=== PATIENT | male | born 1970 | race Caucasian/White ===

== ENCOUNTER 2022-11-20 00:40 | Emergency (ER) | payer OTHER, SELFPAY ==
[2022-11-20 00:47] VITALS: BP 139/85; PULSE 88; RESP 16; TEMP 36.5; O2SAT 96; BMI 38.4
--- NOTE | 2022-11-20 01:33 | CRLHL7_ITS ---
For Patients: As a result of the Century Cures Act, medical imaging exams and procedure reports are released immediately into your electronic medical record. You may view this report before your referring provider. If you have questions, please contact your health care provider. INDICATION: Occipital headache. Head and neck pain. COMPARISON: None available. TECHNIQUE: CT examination of the head was performed with 3 mm thick axial and 2 mm thick coronal and sagittal sections without intravenous contrast. Images were obtained from the vertex of the skull through the skull base, and I examined the images with the brain and bone windows. Please note that all CT scans at this facility use dose modulation, iterative reconstruction, and/or weight-based dosing when appropriate to reduce radiation dose to as low as reasonably achievable. FINDINGS: : The brain is normal in appearance for the patient`s age on today`s study, with no sign of mass lesion, mass effect, hemorrhage, or edema. The ventricles and sulci are normal in appearance for the patient`s age. The visualized portions of the orbits are normal in appearance. The visualized portions of the paranasal sinuses and mastoids are clear. The osseous structures are normal in their appearance with no sign of abnormality in the skull base or calvarium. IMPRESSION: Nothing seen to correlate with history of headache. Normal noncontrast CT of the head for the patient`s age. Please note that all CT scans at this facility use dose modulation, iterative reconstruction, and/or weight-based dosing when appropriate to reduce radiation dose to as low as reasonably achievable. Dictated by Clemente Cuevas MD @ 11/20/2022 3:46:06 AM (Electronically Signed)
--- NOTE | 2022-11-20 01:34 | ED.GENADULT ---
HPI - General Adult General Chief complaint: Headache/Migraine Stated complaint: Dizzy, headaches Time Seen by Provider: 11/20/22 01:15 Source: patient and family History of Present Illness HPI narrative: 52-year-old male with ongoing history of worsening insomnia. Known history of obstructive sleep apnea but has had some difficulty obtaining his CPAP device. For the last couple nights, he has been unable to fall asleep entirely and as a result is feeling more tired, weak, anxious and is feeling dizzy with occipital area headache. Headache is achy in nature, it is not worse with movement or exertion. It is not accompanied by any neurological change, seizure, loss of consciousness. There was no head trauma. The dizziness is more a lightheadedness feeling, not a room spinning feeling and is not accompanied by any vision change. He reports some vague chest discomfort, at rest, more so when he is trying to fall asleep and is also not exertional. He does not have any history of coronary artery disease or stress testing. He does carry a diagnosis of prior hypertension and has been on medications in the past but had lost a significant amount of weight purposefully to get off of the blood pressure medicines and has been told he can continue to do so. He reports that he saw his primary care provider last week, a new physician to him. Lots of blood work was done at another health system and I do not have access to those full records. No scans of any kind. It sounds as though the provider was working him up mainly for shoulder pain and they have plans to continue chipping away at the ongoing insomnia and other health concerns. Patient has not tried any specific medications to help with his sleep, dizziness, chest symptoms or fatigue. He has tried eliminating caffeine with no significant improvement, light daily exercise also with no improvement. No fever, no vomiting, no other systemic symptoms of illness. He is eating and drinking normally. No unexplained weight loss. No neurological changes. On specific questioning, he states that he does not typically have the dizziness and anxiety symptoms when he 1st goes to sleep but rather wakes with them. This is increasing in frequency over the last few nights. The headache is worse upon awakening in the middle of the night with the other symptoms but is somewhat present throughout the day as well. He reports that he uses cannabis gummies about once weekly, alcohol 1-2 drinks once weekly. No smoking, no other unusual recreational habits. Past medical history notable for history of hypertension and hyperlipidemia, no longer on medications for the hypertension. No allergies. No pertinent travel. ROS is notable for the generalized, neurological, musculoskeletal and cardiac symptoms as above, otherwise denies times 12 systems. Related Data Home Medications Medication Instructions Recorded Confirmed fluticasone propionate 50 1 spray intranasal DAILY PRN 11/20/22 11/20/22 mcg/actuation nasal spray,suspension (24 Hour Allergy Relief) Previous Rx's Medication Instructions Recorded albuterol sulfate 90 mcg/actuation 2 puff inhalation Q4-6H PRN 06/13/22 aerosol inhaler shortness of breath or wheezing #8.5 grams Allergies Allergy/AdvReac Type Severity Reaction Status Date / Time No Known Drug Allergies Allergy Verified 06/13/22 15:44 PFSH [facility] Medical History Wheeze ?R06.2 - Wheezing (ICD-10) COVID ?U07.1 - COVID-19 (ICD-10) Social History Smoking Status: Never smoker How often do you have a drink containing alcohol: never AUDIT-C Alcohol total score: 0 Non-prescribed substance use: denies use Exam Const: Vital Signs, click to edit/add: Vital Signs - 24 hr 11/20/22 00:47 11/20/22 03:22 Temperature 97.7 F Pulse Rate [Pulse Oximeter] 88 71 Respiratory Rate 16 16 Blood Pressure [Le ft Upper Arm] 139/85 135/90 H Pulse Oximetry 96 98 Oxygen Delivery Me thod Room Air Room Air Documenting provider has reviewed patient's vital signs: yes Common normals: alert General appearance: cooperative, comfortable and well kempt Orientation/consciousness: Yes awake HENMT: Common normals: normocephalic Head and scalp: normocephalic Face and sinus: normal facial exam Mouth: oral and palatal mucosa normal Throat: posterior oropharynx normal Eye: Common normals: PERRL, EOMs intact bilaterally and conjunctivae normal General eye: normal appearance of both eyes Conjunctiva: conjunctiva(e) normal Pupil: PERRL Neck & C-Spine: Common normals: full ROM, no lymphadenopathy, supple and no meningeal signs Resp: Common normals: normal respiratory effort, no retractions, no use of accessory muscles and clear to auscultation bilaterally Effort & inspection: able to speak in complete sentences Auscultation: clear to auscultation bilaterally Cardio: Common normals: regular rate, regular rhythm, S1 normal heart sound, S2 normal heart sound and no murmurs Rate: regular rate Rhythm: regular rhythm Heart sounds: S1 normal and S2 normal GI: Common normals: Normal to inspection, nondistended, normoactive bowel sounds present Extremity: Common normals: normal to inspection, normal capillary refill and no pedal edema Neuro: Sensorium/orientation: awake and alert Meningeal signs: no meningeal signs Cranial nerves: CN normal except as noted Speech: speech normal Gait (neuro): normal gait Motor exam: strength 5/5 throughout, no pronator drift, no tremor noted, muscle tone normal throughout and no movement abnormalities noted Psych: Appearance: well kempt Attitude: engaged Activity/motor behavior: appropriate eye contact Mood and affect: anxious Insight: fair Judgement: judgment good Skin: Common normals: no rashes or lesions noted General skin exam: no rashes or lesions noted Course Course Hospital Course: Differential diagnosis including intracranial pathology, tension headache, meningitis, infection, cardiac disease, among others. Recommend EKG, head CT, basic labs, cardiac monitoring. Will do trial of meclizine 25 mg, though I do not think this is vertiginous. p.o. x1. Reevaluation(s) Time of Reevaluation #1: 04:36 Reevaluation #1: Discussed EKG and CT findings with patient. Unfortunately, there was an error with his labs and they are unable to be run. They will need to be redrawn. This was discussed with him and he declines further wait after our full discussion of the other studies and his recent outpatient labs from the other Health System. The meclizine was not helpful. At this time, would like to go home. We had an extensive discussion on the tension headaches and symptoms that are waking him from sleep. This could be related to anxiety or fight or flight response from the sleep apnea. Was agreeable to a trial of some Flexeril for the tension headache and gentle sleep aid benefits. He has used this in the past with good results for other ailments. According to his sleep study, he does not have any severe apnea that would be life-threatening and it is okay to wait for his upcoming appointment in a few weeks. All questions were answered. Alarm symptoms that would warrant ED presentation reviewed. He verbalizes understanding and agreement. I did apologize for the miscommunication between nursing and lab regarding his blood work. He was very understanding of this. Vital Signs Vital signs: Initial Vital Signs Temperature 97.7 F 11/20/22 00:47 Temperature Source Temporal Artery Scan 11/20/22 00:47 Pulse Rate 88 11/20/22 00:47 Respiratory Rate 16 11/20/22 00:47 Blood Pressure 139/85 11/20/22 00:47 Blood Pressure Mean 103 11/20/22 00:47 Blood Pressure Position Sitting 11/20/22 00:47 Pulse Oximetry 96 11/20/22 00:47 Oxygen Delivery Method Room Air 11/20/22 00:47 Vital Signs Temperature 97.7 F 11/20/22 00:47 Pulse Rate 88 11/20/22 00:47 Respiratory Rate 16 11/20/22 00:47 Blood Pressure 139/85 11/20/22 00:47 Pulse Oximetry 96 11/20/22 00:47 Oxygen Delivery Method Room Air 11/20/22 00:47 Temperature 97.7 F 11/20/22 00:47 Pulse Rate 71 11/20/22 03:22 Respiratory Rate 16 11/20/22 03:22 Blood Pressure 135/90 H 11/20/22 03:22 Pulse Oximetry 98 11/20/22 03:22 Oxygen Delivery Method Room Air 11/20/22 03:22 Medical Decision Making MDM Narrative Medical decision making narrative: Differential diagnosis including stroke, brain tumor, meningitis, infection. More likely anxiety, fatigue from poor sleep. Cannot exclude viral illness, cardiac process, neurological condition, among others. Counseled patient that I suspect is more than ongoing issue but I would like to rule out emergent causes here in the emergency department. He was agreeable to this. Recommend EKG, troponin, basic labs, head CT. For the dizziness, will do a trial dose of meclizine though it does not seem vertiginous. Await findings. Lab Data Lab results reviewed: Yes I reviewed the patient's lab results Labs: Lab Results 11/20/22 Range/Units 04:21 Urine Color Yellow (Yellow) Urine Appearance Clear (Clear) Urine pH 5.5 (5.0-8.5) Ur Specific [place] 1.020 (1.000-1.030) Urine Protein Negative (Negative) Urine Glucose (UA) Negative (Negative) Urine Ketones Negative (Negative) Urine Blood Negative (Negative) Urine Nitrite Negative (Negative) Urine Bilirubin Negative (Negative) Urine Urobilinogen 0.2 (0.2-1.0) Ur Leukocyte Esterase Negative (Negative) Imaging Data CT scan - head: Attestation: I have reviewed the pertinent imaging results. My impression: More vascular calcifications and would typically be expected for age but no obvious mass, stroke, etc. Radiologist's impression: IMPRESSION: Nothing seen to correlate with history of headache. Normal noncontrast CT of the head for the patient`s age. ECG Data Attestation: I personally reviewed and interpreted this ECG as follows: Prior ECG tracings: not available for review Interpretation: Normal sinus rhythm, rate 74. No significant ST or T-wave abnormalities. Normal axis. Good R-wave progression. Discharge Plan Discharge Clinical Impression: Tension headache, Sleep disorder Patient Disposition: Home w/ Parent or Adult Condition: Stable Instructions: Tension Headache (ED) Additional Instructions: I am sorry that there was a mixup with the labs tonight and that the analyzer is not working properly. As we discussed, I do not think waiting 2 more hours to have the labs redrawn and run will likely change our management. Your EKG does not show any signs of heart attack or arrhythmia. The head CT does not show any significant bleed, tumor, stroke or other reason for the headache. I do believe that your headaches are a tension-type headache from poor sleep. I do think that there is an underlying sleep related disorder, most likely mild sleep apnea. You are on the appropriate past to pursue the sleep disorder with your specialist. Keep these pending appointments. As we discussed, I think you could benefit from a gentle sleep aid. I recommend Flexeril which is a muscle relaxant 10 mg at bedtime as needed to help not only with sleep but to help relieve the muscular tension in your neck. For the headache, you may continue using Tylenol 1000 mg every 6 hours and or ibuprofen 600 mg every 6 hours. You will need to re-dose the medication as it wears off. As we discussed, I would want you to come back to the emergency department if you have a seizure, lose consciousness or have stroke-like symptoms. You should come back if you have crushing chest pain, feeling of abnormal heart rate, rhythm or oddly new exertional symptoms. Activity Level: No Restrictions Discharge Diet: Regular Prescriptions: No Action albuterol sulfate 90 mcg/actuation HFA aerosol inhaler 2 puff inhalation Q4-6H PRN (Reason: shortness of breath or wheezing) Qty: 8.5 0RF fluticasone propionate [24 Hour Allergy Relief] 50 mcg/actuation spray,suspension 1 spray intranasal DAILY PRN Rx Instructions: administer into each nostril Follow Up/Referrals: Hortencia Salinas MD [Referring] - Stand Alone Forms: [employer] Info Instructions
[2022-11-20] MEDS: MECLIZINE HCL 25 MG TABLET PO (01:50)
[2022-11-20 03:22] VITALS: BP 135/90; PULSE 71; RESP 16; O2SAT 98
[2022-11-20 04:26] LABS: Appearance Urine Clear (Clear); Bilirubin Urine Negative (Negative); Blood Urine Negative (Negative); Color Urine Yellow (Yellow); Glucose Urine Negative (Negative); Ketones Urine Negative (Negative); Leukocyte Esterase Urine Negative (Negative); Nitrite Urine Negative (Negative); Protein Urine Negative (Negative); Urobilinogen Urine 0.2 (0.2-1.0); pH Urine 5.5 (5.0-8.5)
[2022-11-20 04:52] VITALS: BP 129/87; PULSE 74; RESP 18; TEMP 36.3
[2022-11-20 04:54] VITALS: BP 129/87; PULSE 74; RESP 16; TEMP 36.3; O2SAT 96
== END 2022-11-20 04:53 | disposition home or self-care (01) ==
PROVIDERS: Emergency Provider Family Medicine; PCP Student in an Organized Health Care Education/Training Program
DX: G44.209 Tension-type headache, unspecified, not intractable (principal); G47.8 Other sleep disorders
CPT/HCPCS: 70450; 80048; 81003; 83880; 84484; 85025; 86140; 99284; A9270

== ENCOUNTER 2023-02-07 13:46 | Emergency (ER) | payer OTHER, SELFPAY ==
[2023-02-07] VITALS (29 sets, daily range): BP systolic 124–155; BP diastolic 91–113; PULSE 70–90; RESP 16; TEMP 36.7; O2SAT 95–99; BMI 37.9
--- NOTE | 2023-02-07 14:40 | CRLHL7_ITS ---
For Patients: As a result of the Century Cures Act, medical imaging exams and procedure reports are released immediately into your electronic medical record. You may view this report before your referring provider. If you have questions, please contact your health care provider. Indication: Chest Pain Comparison: None available. Technique: PA and lateral views of the chest Findings: There is hyperinflation and chronic interstitial change without dense consolidation, effusion or pneumothorax. Calcified granulomas are seen within the peripheral left upper lobe. The cardiac silhouette is mildly prominent. The bony thorax is grossly intact. Impression: Hyperinflation and chronic interstitial changes without dense consolidation. Dictated by Ralf Ching MD @ 02/07/2023 3:14:14 PM (Electronically Signed)
[2023-02-07 15:16] LABS: Basophils Absolute Auto 0.03 K/uL (0.00-0.30); Basophils Percent Auto 0.6 % (0.0-3.0); Eosinophils Absolute Auto 0.07 K/uL (0.00-0.50); Eosinophils Percent Auto 1.5 % (0.0-7.0); Hematocrit 40.4 % (37.0-53.0); Hemoglobin* 14.1 gm/dL (13.5-17.5); Immature Granulocytes Abs Auto 0.01 K/uL (0.00-0.30); Immature Granulocytes Pct Auto 0.2 %; Lymphocytes Absolute Auto 1.68 K/uL (0.90-2.90); Lymphocytes Percent Auto 35.1 % (20-44); Mean Corpuscular HGB Conc 35 gm/dL (32-36); Mean Corpuscular Hemoglobin 29 pg (26-34); Mean Corpuscular Volume 82 fL (80-100); Monocytes Percent Auto 8.6 % (0.0-11.0); Neutrophils Absolute Auto 2.58 K/uL (1.7-7.0); Platelet Count* 179 K/uL (140-440); RDW Coefficient of Variation % 12.5 % (11.5-15.5); Red Blood Count 4.92 m/uL (4.30-5.90); White Blood Count* 4.78 K/uL (4.50-11.00)
--- NOTE | 2023-02-07 15:16 | ED_ITS ---
HPI - General Adult General Date Seen: 02/07/23 <Riana Rocha MD - Last Filed: 02/12/23 16:25> Chief complaint: Shortness of Breath/Dyspnea <Riana Rocha MD - Last Filed: 02/12/23 16:25> Stated complaint: Tightness and lightheaded for a few days <Riana Rocha MD - Last Filed: 02/12/23 16:25> Time Seen by Provider: 02/07/23 14:24 <Riana Rocha MD - Last Filed: 02/12/23 16:25> Source: patient <Riana Rocha MD - Last Filed: 02/12/23 16:25> Mode of arrival: ambulatory <Riana Rocha MD - Last Filed: 02/12/23 16:25> Limitations: no limitations <Riana Rocha MD - Last Filed: 02/12/23 16:25> History of Present Illness HPI narrative: Patient is a 53-year-old male with past medical history noted for hypertension who comes in for evaluation of chest tightness and dizziness. He says he 1st noted symptoms on when he was helping his son move him was caring a lot of heavy boxes and other heavy items. He does note he has been having problems with his right shoulder for quite some time and just started doing physical therapy, so he thought 1st he might have just strained something in his chest. He did note that symptoms settle down after he was no longer working on the moving project. At some point over the weekend symptoms came back, he thinks on a Monday, and really been persistent since then. He says they wax and wane in terms of intensity but have never gone completely away. He notes tightness in the center of his chest associated with some shortness of breath and mild dizziness. He has not had any syncope, has not had fevers or c ough, no diaphoresis, no lower extremity swelling or pain, no palpitations. No history of similar previous symptoms. He says that he had been on blood pressure medicine but then lost weight and his old primary doctor took him off of blood pressure medicine. He then says that his doctor left the clinic can he really was sort of out of touch with the clinic for about 9 months. Recently went back and blood pressure medication was not prescribed at that time although he noted that he has regained weight and blood pressures have been running on the high side. He does not smoke, denies significant alcohol. Family history notable for apparently a lot of Crohn's disease, dad at age 45 of a brain tumor, but there is no early coronary artery disease or stroke. <Riana Rocha MD - Last Filed: 02/12/23 16:25> Related Data Home medications: Home Medications Medication Instructions Recorded Confirmed fluticasone propionate 50 1 spray intranasal DAILY PRN 11/20/22 11/20/22 mcg/actuation nasal spray,suspension (24 Hour Allergy Relief) Previous Rx's Medication Instructions Recorded albuterol sulfate 90 mcg/actuation 2 puff inhalation Q4-6H PRN 06/13/22 aerosol inhaler shortness of breath or wheezing #8.5 grams <Riana Rocha MD - Last Filed: 02/12/23 16:25> Allergies/adverse reactions: Allergies Allergy/AdvReac Type Severity Reaction Status Date / Time No Known Drug Allergies Allergy Verified 06/13/22 15:44 <Riana Rocha MD - Last Filed: 02/12/23 16:25> Review of Systems Status of ROS: Reports: 10 or more systems reviewed and unremarkable except as noted in History and below <Riana Rocha MD - Last Filed: 02/12/23 16:25> [facility] Medical History: Medical History Wheeze ?R06.2 - Wheezing (ICD-10) COVID ?U07.1 - COVID-19 (ICD-10) <Riana Rocha MD - Last Filed: 02/12/23 16:25> Social History: Social History Smoking Status: Never smoker How often do you have a drink containing alcohol: never AUDIT-C Alcohol total score: 0 Non-prescribed substance use: denies use <Riana Rocha MD - Last Filed: 02/12/23 16:25> Exam Narrative: Exam Narrative: Vital signs as noted above. In general, an alert, well-appearing patient. He is overweight. Head: Normocephalic, atraumatic. Eyes: Pupils are equal reactive. Extraocular movements are full. Conjunctivae are normal. ENT: Mucous membranes are moist. Throat is normal. Neck: Supple without lymphadenopathy. Heart: Regular rate and rhythm. No murmur or rub. Lungs: Clear bilaterally. No increased work of breathing, crackles or wheezes. Abdomen: Soft and nontender. No organomegaly. Extremities: Well perfused. No edema. No calf tenderness. Pulses intact. Neurologic: Patient is alert and oriented to person and place. Speech is fluent. Face is symmetric. Moves all extremities equally. Affect: Normal. Skin: His back was noted to be somewhat diaphoretic, gown was open and he was seated directly against the vinyl chair so he may have just been sweating for this reason. He does not otherwise appear diaphoretic. <Riana Rocha MD - Last Filed: 02/12/23 16:25> Const: Vital Signs, click to edit/add: Vital Signs - 24 hr 02/07/23 14:13 02/07/23 14:39 02/07/23 14:57 Temperature 98.1 F Pulse Rate 75 Pulse Rate [Pulse Oximeter] 87 Respiratory Rate 16 Blood Pressure 150/95 H Blood Pressure [Ri ght Upper Arm] 149/91 H Pulse Oximetry 99 97 97 Oxygen Delivery Me thod Room Air 02/07/23 14:58 02/07/23 15:00 02/07/23 15:01 Temperature Pulse Rate 70 77 80 Pulse Rate [Pulse Oximeter] Respiratory Rate Blood Pressure 133/101 H Blood Pressure [Ri ght Upper Arm] Pulse Oximetry 98 96 96 Oxygen Delivery Me thod 02/07/23 15:02 02/07/23 15:15 02/07/23 15:30 Temperature Pulse Rate 75 75 89 Pulse Rate [Pulse Oximeter] Respiratory Rate Blood Pressure Blood Pressure [Ri ght Upper Arm] Pulse Oximetry 97 97 96 Oxygen Delivery Me thod 02/07/23 15:31 02/07/23 15:45 02/07/23 16:00 Temperature Pulse Rate 71 71 71 Pulse Rate [Pulse Oximeter] Respiratory Rate Blood Pressure 137/97 H Blood Pressure [Ri ght Upper Arm] Pulse Oximetry 98 97 95 Oxygen Delivery Me thod 02/07/23 16:01 02/07/23 16:15 02/07/23 16:31 Temperature Pulse Rate 70 74 72 Pulse Rate [Pulse Oximeter] Respiratory Rate Blood Pressure 132/102 H 124/93 H Blood Pressure [Ri ght Upper Arm] Pulse Oximetry 97 97 97 Oxygen Delivery Me thod 02/07/23 16:32 02/07/23 16:45 02/07/23 17:00 Temperature Pulse Rate 73 76 75 Pulse Rate [Pulse Oximeter] Respiratory Rate Blood Pressure Blood Pressure [Ri ght Upper Arm] Pulse Oximetry 96 97 97 Oxygen Delivery Me thod 02/07/23 17:01 02/07/23 17:15 02/07/23 17:31 Temperature Pulse Rate 74 77 79 Pulse Rate [Pulse Oximeter] Respiratory Rate Blood Pressure 129/101 H 139/95 H Blood Pressure [Ri ght Upper Arm] Pulse Oximetry 98 98 98 Oxygen Delivery Me thod 02/07/23 17:32 02/07/23 17:45 Temperature Pulse Rate 75 75 Pulse Rate [Pulse Oximeter] Respiratory Rate Blood Pressure Blood Pressure [Ri ght Upper Arm] Pulse Oximetry 97 98 Oxygen Delivery Me thod <Riana Rocha MD - Last Filed: 02/12/23 16:25> Vital Signs, click to edit/add: Vital Signs - 24 hr 02/07/23 14:13 02/07/23 14:39 02/07/23 14:57 Temperature 98.1 F Pulse Rate 75 Pulse Rate [Pulse Oximeter] 87 Respiratory Rate 16 Blood Pressure 150/95 H Blood Pressure [Ri ght Upper Arm] 149/91 H Pulse Oximetry 99 97 97 Oxygen Delivery Me thod Room Air 02/07/23 14:58 02/07/23 15:00 02/07/23 15:01 Temperature Pulse Rate 70 77 80 Pulse Rate [Pulse Oximeter] Respiratory Rate Blood Pressure 133/101 H Blood Pressure [Ri ght Upper Arm] Pulse Oximetry 98 96 96 Oxygen Delivery Me thod 02/07/23 15:02 02/07/23 15:15 02/07/23 15:30 Temperature Pulse Rate 75 75 89 Pulse Rate [Pulse Oximeter] Respiratory Rate Blood Pressure Blood Pressure [Ri ght Upper Arm] Pulse Oximetry 97 97 96 Oxygen Delivery Me thod 02/07/23 15:31 02/07/23 15:45 02/07/23 16:00 Temperature Pulse Rate 71 71 71 Pulse Rate [Pulse Oximeter] Respiratory Rate Blood Pressure 137/97 H Blood Pressure [Ri ght Upper Arm] Pulse Oximetry 98 97 95 Oxygen Delivery Me thod 02/07/23 16:01 02/07/23 16:15 02/07/23 16:31 Temperature Pulse Rate 70 74 72 Pulse Rate [Pulse Oximeter] Respiratory Rate Blood Pressure 132/102 H 124/93 H Blood Pressure [Ri ght Upper Arm] Pulse Oximetry 97 97 97 Oxygen Delivery Me thod 02/07/23 16:32 02/07/23 16:45 02/07/23 17:00 Temperature Pulse Rate 73 76 75 Pulse Rate [Pulse Oximeter] Respiratory Rate Blood Pressure Blood Pressure [Ri ght Upper Arm] Pulse Oximetry 96 97 97 Oxygen Delivery Me thod 02/07/23 17:01 02/07/23 17:15 02/07/23 17:31 Temperature Pulse Rate 74 77 79 Pulse Rate [Pulse Oximeter] Respiratory Rate Blood Pressure 129/101 H 139/95 H Blood Pressure [Ri ght Upper Arm] Pulse Oximetry 98 98 98 Oxygen Delivery Me thod 02/07/23 17:32 02/07/23 17:45 Temperature Pulse Rate 75 75 Pulse Rate [Pulse Oximeter] Respiratory Rate Blood Pressure Blood Pressure [Ri ght Upper Arm] Pulse Oximetry 97 98 Oxygen Delivery Me thod <Clemente Rendon MD - Last Filed: 02/07/23 18:22> Documenting provider has reviewed patient's vital signs: yes <Riana Rocha MD - Last Filed: 02/12/23 16:25> Course Course ED Course: On arrival, patient had an EKG which by my review shows a normal sinus rhythm, ventricular rate of 85. No acute ST segment changes, T-waves are unremarkable. Labs including a troponin are pending diagnostic considerations include angina/acute coronary syndrome, viral upper respiratory infection, pneumonia, pulmonary embolism, dissection, gastroesophageal reflux among others. Patient says he does have a history of heartburn but has not had problems for about 5 years and symptoms do not feel typical for that. Labs are overall reassuring, troponin is 0, white blood cell count is normal, D- dimer is less than 0.27, metabolic panel and LFTs unremarkable with the exception of an AST of 42. CRP is 0.9, lipase 173, COVID pending. Discussed with him that we often do not determinate exact cause for these types of symptoms but will rule out anything dangerous. I think with symptoms that have been relatively persistent for the past couple of days that we can certainly rule out acute coronary syndrome with a 2nd troponin at about 2 hours. Otherwise, I have recommended to him that he follow-up with his primary doctor, I do think a stress test would be reasonable for him. <Riana Rocha MD - Last Filed: 02/12/23 16:25> Reevaluation(s) Reevaluation #1: Justice -- Received Mr. Silverman in handoff at change of shift pending repeat troponin. This was indeed negative. Discharge then per Dr. Rocha <Clemente Rendon MD - Last Filed: 02/07/23 18:22> Vital Signs Vital signs: Initial Vital Signs Temperature 98.1 F 02/07/23 14:13 Temperature Source Temporal Artery Scan 02/07/23 14:13 Pulse Rate 87 02/07/23 14:13 Respiratory Rate 16 02/07/23 14:13 Blood Pressure 149/91 H 02/07/23 14:13 Blood Pressure Mean 110 H 02/07/23 14:13 Blood Pressure Position Sitting 02/07/23 14:13 Pulse Oximetry 99 02/07/23 14:13 Oxygen Delivery Method Room Air 02/07/23 14:13 Vital Signs Temperature 98.1 F 02/07/23 14:13 Pulse Rate 87 02/07/23 14:13 Respiratory Rate 16 02/07/23 14:13 Blood Pressure 149/91 H 02/07/23 14:13 Pulse Oximetry 99 02/07/23 14:13 Oxygen Delivery Method Room Air 02/07/23 14:13 Temperature 98.1 F 02/07/23 14:13 Pulse Rate 81 02/07/23 18:45 Respiratory Rate 16 02/07/23 14:13 Blood Pressure 155/113 H 02/07/23 18:31 Pulse Oximetry 96 02/07/23 18:45 Oxygen Delivery Method Room Air 02/07/23 14:13 <Riana Rocha MD - Last Filed: 02/12/23 16:25> Initial Vital Signs Temperature 98.1 F 02/07/23 14:13 Temperature Source Temporal Artery Scan 02/07/23 14:13 Pulse Rate 87 02/07/23 14:13 Respiratory Rate 16 02/07/23 14:13 Blood Pressure 149/91 H 02/07/23 14:13 Blood Pressure Mean 110 H 02/07/23 14:13 Blood Pressure Position Sitting 02/07/23 14:13 Pulse Oximetry 99 02/07/23 14:13 Oxygen Delivery Method Room Air 02/07/23 14:13 Vital Signs Temperature 98.1 F 02/07/23 14:13 Pulse Rate 87 02/07/23 14:13 Respiratory Rate 16 02/07/23 14:13 Blood Pressure 149/91 H 02/07/23 14:13 Pulse Oximetry 99 02/07/23 14:13 Oxygen Delivery Method Room Air 02/07/23 14:13 Temperature 98.1 F 02/07/23 14:13 Pulse Rate 81 02/07/23 18:45 Respiratory Rate 16 02/07/23 14:13 Blood Pressure 155/113 H 02/07/23 18:31 Pulse Oximetry 96 02/07/23 18:45 Oxygen Delivery Method Room Air 02/07/23 14:13 <Clemente Rendon MD - Last Filed: 02/07/23 18:22> Medical Decision Making Lab Data Labs: Lab Results 02/07/23 02/07/23 02/07/23 Range/Units 14:40 15:07 17:32 WBC 4.78 (4.50-11.00) K/uL RBC 4.92 (4.30-5.90) m/uL Hgb 14.1 (13.5-17.5) gm/dL Hct 40.4 (37.0-53.0) % MCV 82 (80-100) fL MCH 29 (26-34) pg MCHC 35 (32-36) gm/dL RDW Coeff of Adryan 12.5 (11.5-15.5) % Plt Count 179 (140-440) K/uL Neut % (Auto) 54.0 (42.0-72.0) % Lymph % (Auto) 35.1 (20-44) % [place] % (Auto) 8.6 (0.0-11.0) % Eos % (Auto) 1.5 (0.0-7.0) % Baso % (Auto) 0.6 (0.0-3.0) % Neut # (Auto) 2.58 (1.7-7.0) K/uL Lymph # (Auto) 1.68 (0.90-2.90) K/uL [place] # (Auto) 0.40 (0.00-0.90) K/UL Eos # (Auto) 0.07 (0.00-0.50) K/uL Baso # (Auto) 0.03 (0.00-0.30) K/uL Abs Immat Gran (auto) 0.01 (0.00-0.30) K/uL Imm/Tot Granulo (auto) 0.2 % D-Dimer Quant (PE/DVT) < 0.27 (0.00-0.50) ug/ml Sodium 137 (135-149) mmol/L Potassium 4.0 (3.6-5.1) mmol/L Chloride 104 (96-114) mmol/L Carbon Dioxide 23 (20-32) mmol/L Anion Gap 10 (7-15) mEq/L BUN 16 (7-30) mg/dL Creatinine 1.0 (0.5-1.5) mg/dL Estimated Creat Clear 88.90 Estimated GFR 89 ml/min Glucose 87 (60-115) mg/dL Calcium 9.2 (8.4-10.6) mg/dL Total Bilirubin 0.8 (0.1-1.5) mg/dL Direct Bilirubin 0.0 (0.0-0.5) mg/dL AST 42 H (12-35) U/L ALT 49 (4-50) U/L Alkaline Phosphatase 87 (40-150) U/L Troponin I < 0.01 L < 0.01 L (0.01-0.04) ng/mL C-Reactive Protein 0.9 (0.5-1.0) mg/dL Total Protein 7.5 (6.0-8.3) g/dL Albumin 4.5 (3.3-5.0) g/dL Lipase 173 (23-300) U/L SARS-CoV-2 (PCR) Negative SARS-CoV-2 (Negative) Influenza Type A (PCR) Negative PCR FLU A (Negative) Influenza Type B (PCR) Negative PCR FLU B (Negative) RSV (PCR) Negative PCR RSV (Negative) <Riana Rocha MD - Last Filed: 02/12/23 16:25> Lab Results 02/07/23 02/07/23 02/07/23 Range/Units 14:40 15:07 17:32 WBC 4.78 (4.50-11.00) K/uL RBC 4.92 (4.30-5.90) m/uL Hgb 14.1 (13.5-17.5) gm/dL Hct 40.4 (37.0-53.0) % MCV 82 (80-100) fL MCH 29 (26-34) pg MCHC 35 (32-36) gm/dL RDW Coeff of Adryan 12.5 (11.5-15.5) % Plt Count 179 (140-440) K/uL Neut % (Auto) 54.0 (42.0-72.0) % Lymph % (Auto) 35.1 (20-44) % [place] % (Auto) 8.6 (0.0-11.0) % Eos % (Auto) 1.5 (0.0-7.0) % Baso % (Auto) 0.6 (0.0-3.0) % Neut # (Auto) 2.58 (1.7-7.0) K/uL Lymph # (Auto) 1.68 (0.90-2.90) K/uL [place] # (Auto) 0.40 (0.00-0.90) K/UL Eos # (Auto) 0.07 (0.00-0.50) K/uL Baso # (Auto) 0.03 (0.00-0.30) K/uL Abs Immat Gran (auto) 0.01 (0.00-0.30) K/uL Imm/Tot Granulo (auto) 0.2 % D-Dimer Quant (PE/DVT) < 0.27 (0.00-0.50) ug/ml Sodium 137 (135-149) mmol/L Potassium 4.0 (3.6-5.1) mmol/L Chloride 104 (96-114) mmol/L Carbon Dioxide 23 (20-32) mmol/L Anion Gap 10 (7-15) mEq/L BUN 16 (7-30) mg/dL Creatinine 1.0 (0.5-1.5) mg/dL Estimated Creat Clear 88.90 Estimated GFR 89 ml/min Glucose 87 (60-115) mg/dL Calcium 9.2 (8.4-10.6) mg/dL Total Bilirubin 0.8 (0.1-1.5) mg/dL Direct Bilirubin 0.0 (0.0-0.5) mg/dL AST 42 H (12-35) U/L ALT 49 (4-50) U/L Alkaline Phosphatase 87 (40-150) U/L Troponin I < 0.01 L < 0.01 L (0.01-0.04) ng/mL C-Reactive Protein 0.9 (0.5-1.0) mg/dL Total Protein 7.5 (6.0-8.3) g/dL Albumin 4.5 (3.3-5.0) g/dL Lipase 173 (23-300) U/L SARS-CoV-2 (PCR) Negative SARS-CoV-2 (Negative) Influenza Type A (PCR) Negative PCR FLU A (Negative) Influenza Type B (PCR) Negative PCR FLU B (Negative) RSV (PCR) Negative PCR RSV (Negative) <Clemente Rendon MD - Last Filed: 02/07/23 18:22> Discharge Plan Discharge Clinical Impression: Chest pain <Riana Rocha MD - Last Filed: 02/12/23 16:25> Patient Disposition: Home, Self-Care <Riana Rocha MD - Last Filed: 02/12/23 16:25> Condition: Stable <Riana Rocha MD - Last Filed: 02/12/23 16:25> Instructions: Chest Pain (ED) <Riana Rocha MD - Last Filed: 02/12/23 16:25> Additional Instructions: Follow-up with your primary doctor in the next week, discuss possible stress testing. If you have severe symptoms at any time return to the emergency department. Testing today was reassuring but does not entirely rule out the possibility of coronary artery disease. <Riana Rocha MD - Last Filed: 02/12/23 16:25> Prescriptions: No Action albuterol sulfate 90 mcg/actuation HFA aerosol inhaler 2 puff inhalation Q4-6H PRN (Reason: shortness of breath or wheezing) Qty: 8.5 0RF fluticasone propionate [24 Hour Allergy Relief] 50 mcg/actuation sp ray,suspension 1 spray intranasal DAILY PRN Rx Instructions: administer into each nostril <Riana Rocha MD - Last Filed: 02/12/23 16:25> Follow Up/Referrals: ELLIS FUENTES DO [Primary Care Provider] - <Riana Rocha MD - Last Filed: 02/12/23 16:25> Stand Alone Forms: MyHealth Info Instructions <Riana Rocha MD - Last Filed: 02/12/23 16:25>
[2023-02-07 15:21] LABS: Slide Review Reflex No
[2023-02-07 15:44] LABS: Albumin* 4.5 g/dL (3.3-5.0); Chloride* 104 mmol/L (96-114)
[2023-02-07 15:45] LABS: Sodium* 137 mmol/L (135-149)
[2023-02-07 15:46] LABS: Estimated Glomerular Filt Rate 89 ml/min
[2023-02-07 15:47] LABS: Alkaline Phosphatase* 87 U/L (40-150); Anion Gap 10 mEq/L (7-15); Aspartate Amino Transferase* 42 U/L (12-35); Bilirubin Total* 0.8 mg/dL (0.1-1.5); Blood Urea Nitrogen* 16 mg/dL (7-30); Carbon Dioxide* 23 mmol/L (20-32); Lipase* 173 U/L (23-300); Total Protein* 7.5 g/dL (6.0-8.3)
[2023-02-07 15:48] LABS: Alanine Aminotransferase* 49 U/L (4-50); Calcium* 9.2 mg/dL (8.4-10.6); Glucose* 87 mg/dL (60-115)
[2023-02-07 15:50] LABS: C Reactive Protein* 0.9 mg/dL (0.5-1.0)
[2023-02-07 15:55] LABS: D Dimer Quantitative* < 0.27 ug/ml (0.00-0.50)
[2023-02-07 16:09] LABS: Troponin I* < 0.01 ng/mL (0.01-0.04)
[2023-02-07 16:18] LABS: PCR FLU A Negative PCR FLU A (Negative); PCR FLU B Negative PCR FLU B (Negative); PCR RSV Negative PCR RSV (Negative)
[2023-02-07 16:19] LABS: SARS PCR* Negative SARS-CoV-2 (Negative)
[2023-02-07 18:09] LABS: Troponin I* < 0.01 ng/mL (0.01-0.04)
== END 2023-02-07 18:58 | disposition home or self-care (01) ==
PROVIDERS: Emergency Medicine; Emergency Provider Family Medicine; PCP Student in an Organized Health Care Education/Training Program
DX: R07.9 Chest pain, unspecified (principal)
CPT/HCPCS: 36415; 71046; 80048; 80076; 83690; 84484; 85025; 85379; 86140; 87631; 93005; 94761; 99284; 99285

== ENCOUNTER 2023-03-09 06:40 | Day surgery (SDC) | payer OTHER, SELFPAY ==
[2023-03-09] VITALS (13 sets, daily range): BP systolic 107–138; BP diastolic 73–90; PULSE 69–90; RESP 14–16; TEMP 36.4–36.9; O2SAT 94–98; BMI 37.6
[2023-03-09] MEDS: SODIUM CHLORIDE 0.9 % (FLUSH) 10 ML SYRINGE IVF (07:25)
[2023-03-09] MEDS: LACTATED RINGERS 1000 ML 1,000 ML 100 ML IV ×2 (07:25→09:10)
[2023-03-09] MEDS: CEFAZOLIN 2 GM INJ IVP (09:09)
--- NOTE | 2023-03-09 09:38 | W.ANESCHARGE ---
Anesthesia Charges Start Date/Time Anesthesia Start Date: 03/09/23 Anesthesia Start Time: 08:55 Stop Date/Time Anesthesia Stop Date: 03/09/23 Anesthesia Stop Time: 10:34
[2023-03-09] MEDS: LIDOCAINE 1% MDV 20 ML INJECTION (10:00)
[2023-03-09] MEDS: BUPIVACAINE 0.5% 30 ML 20 ML INJECTION (10:00)
--- NOTE | 2023-03-09 10:19 | PM.GSPRC ---
Operative Note Pre-op diagnosis: 1. Umbilical hernia 2. Desire for permanent sterilization Post-op diagnosis: Same Type of Procedure: 1. Open repair of umbilical hernia using mesh. 2. Vasectomy. Indications: The patient is a 53-year-old male who presented to clinic with an umbilical hernia which has become increasingly symptomatic. After discussion of options he elected to undergo repair. He also expressed desire for vasectomy. We discussed the option of performing this in the OR at the same time of his umbilical hernia as long as his insurance would allow. He agreed to proceed. Procedure Description: After discussing the risks and benefits of the procedure, the patient signed informed consent.? The operative site was marked and the patient was brought to the operating room and placed on the operating table in supine position.? Care was taken to pad the patient's pressure points.?? The patient was then intubated by anesthesia.?? The abdomen was then prepped and draped in the usual sterile fashion.? A time-out was then performed. Local anesthetic was injected into the fascia, skin and subcutaneous tissues. A curvilinear incision was made at the umbilicus. Dissection was carried down into the subcutaneous tissue using cautery. The hernia sac was encountered and care was taken to not enter it. Dissection was taken down to the fascia, and the umbilical stalk was carefully dissected off of the hernia sac. Once the hernia sac was dissected out circumferentially, it was reduced. The fascial edges were then cleared circumferentially. The hernia was 2 cm in size and so the decision was made to use a piece of mesh. A preperitoneal pocket was created using a combination of blunt dissection and cautery. Hemostasis appeared adequate. Once the posterior fascia was clear, a piece of meat Ventralex ST hernia mesh was placed in the preperitoneal space with care to ensure that it laid flat. This was secured into place using 2 0 PDS interrupted sutures. The tails were then trimmed and the fascial opening was closed with a running 0 Vicryl. The umbilicus was reapproximated to the fascia. The skin was then closed with running absorbable suture. A sterile dressing was then applied. Attention was then turned to the vasectomy. The scrotum and penis were prepped with copious Betadine and draped. I began on the right side. The spermatic cord was grasped and the vas deferens isolated. 1% lidocaine was injected into the scrotal skin and around the vas deferens. Once the skin was anesthetized, a stab incision was made overlying the vas. Blunt dissection was taken down to the vas. The vas deferens was then grasped and pulled out the incision. Careful dissection was then done to isolate a 3 cm segment of vas deferens from the surrounding blood vessels and tissue. Once this was done the vas was clipped proximally and distally and sharply transected with scissors. The ends were also cauterized. The excised segment of vas deferens was passed off for pathology. The wound was examined for hemostasis which was adequate. The same procedure was then performed on the left, again isolating a 3 cm segment of vas deferens and sending for pathology. The incisions were closed with buried 4-0 Monocryl suture. The patient was then woken and transported to the recovery area in stable condition. ? The patient tolerated the procedure well. Findings: 2 cm fat containing umbilical hernia, repaired with mesh. Anesthesia: GETA Surgeon: Haydee Hooper MD Estimated blood loss (mL): 5 Additional Specimen Information: 1. Right vas deferens 2. Left vas deferens Condition: stable Disposition: PACU Date of procedure: 03/09/23
--- NOTE | 2023-03-09 10:34 | W.ANESCHARGE ---
Anesthesia Charges Start Date/Time Anesthesia Start Date: 03/09/23 Anesthesia Start Time: 08:55 Stop Date/Time Anesthesia Stop Date: 03/09/23 Anesthesia Stop Time: 10:34
== END 2023-03-09 12:44 | disposition home or self-care (01) ==
PROVIDERS: PCP Student in an Organized Health Care Education/Training Program; Visit Provider Surgery
PROC: (CPT 49591; principal; 2023-03-09 08:00)
PROC: (CPT 55250; 2023-03-09 08:00)
DX: K42.9 Umbilical hernia without obstruction or gangrene (principal); Z30.2 Encounter for sterilization
CPT/HCPCS: 49591; 55250; 00750; 00830; 88302; C1781; J0330; J0665; J0690; J1100; J1170; J2250; J2405; J2704; J3010; J3490; J7120

== ENCOUNTER 2023-03-15 15:15 | Outpatient (RCR) | payer OTHER, SELFPAY | END 2023-06-23 13:58 | disposition home or self-care (01) | PROVIDERS: PCP Student in an Organized Health Care Education/Training Program; Visit Provider Student in an Organized Health Care Education/Training Program | DX: M25.511 Pain in right shoulder (principal); G89.29 Other chronic pain; Z74.09 Other reduced mobility; R29.898 Other symptoms and signs involving the musculoskeletal system; Z51.89 Encounter for other specified aftercare | CPT/HCPCS: 97110; 97140; 97161; 97530 ==

== ENCOUNTER 2024-04-17 09:21 | Outpatient (CLI) | payer OTHER, SELFPAY ==
--- NOTE | 2024-04-17 09:15 | CRLHL7_ITS ---
For Patients: As a result of the 21st Century Cures Act, medical imaging exams and procedure reports are released immediately into your electronic medical record. You may view this report before your referring provider. If you have questions, please contact your health care provider. INDICATION: Difficulty swallowing TECHNIQUE: Modified barium swallow. Fluoroscopic time 1 minute 14 seconds. FINDINGS/IMPRESSION: Anatomical structures are normal. Swallowing mechanism appears within normal limits. No episodes of penetration or aspiration. No significant findings. Dictated by Clemente Steen MD @ 04/17/2024 11:49:27 AM (Electronically Signed)
== END 2024-04-17 09:22 | disposition home or self-care (01) ==
LOC: RAD 09:21
PROVIDERS: PCP Student in an Organized Health Care Education/Training Program; Visit Provider Student in an Organized Health Care Education/Training Program
DX: R13.10 Dysphagia, unspecified (principal)
CPT/HCPCS: 74230; 92611

== ENCOUNTER 2024-10-09 18:17 | Outpatient (CLI) | payer BC, SELFPAY | END 2024-10-09 18:18 | disposition home or self-care (01) | LOC: NFLDREF 10-10 23:40 | PROVIDERS: PCP Student in an Organized Health Care Education/Training Program; Referring Provider Student in an Organized Health Care Education/Training Program; Visit Provider Physician Assistant | DX: R07.89 Other chest pain (principal); R42 Dizziness and giddiness | CPT/HCPCS: 84484; 85379 ==